=== PATIENT | male | born 1970 | race Hispanic/Latino ===

== ENCOUNTER 2017-04-29 15:49 | Observation (INO) | payer BC ==
[2017-04-29] MEDS ORDERED: Sodium Chloride 0.9% 1,000 ML IV STA (16:42)
[2017-04-29 17:02] LABS: ADD MANUAL DIFF? NO
[2017-04-29 17:12] LABS: BASO # 0.04 K/mm3 (0.0-2.0); BASO % 0.5 % (0.0-3.0); EOS # 0.1 (0.0-0.7); EOS % 0.7 % (1.5-5.0); GRAN # 4.98 (1.4-6.5); GRAN % 66.6 % (50.0-68.0); HEMATOCRIT 42.2 % (42.0-52.0); LYMPH # 1.8 (1.2-3.4); LYMPH % 24.4 % (22.0-35.0); MEAN CELL VOLUME 93.2 fL (80.0-105.0); MEAN CORPUSCULAR HEMOGLOBIN 32.9 pg (25.0-35.0); MEAN CORPUSCULAR HGB CONC 35.3 g/dl (31.0-37.0); MEAN PLATELET VOLUME 9.5 fl (7.0-11.0); MONO # 0.6 (0.1-0.6); MONO % 7.8 % (1.0-6.0); PLATELET COUNT 206 10^3/uL (120.0-450.0); RED CELL DISTRIBUTION WIDTH 12.5 % (11.5-14.5); WHITE BLOOD COUNT 7.5 10^3/ul (4.5-11.0)
[2017-04-29 17:22] LABS: ALB/GLOB RATIO 1.2 (1.1-1.8); ALKALINE PHOSPHATASE 90 U/L (38-133); ALT/SGPT 33 U/L (7-56); AST/SGOT 23 U/L (15-59); BILIRUBIN,TOTAL 1.1 mg/dL (0.2-1.3); BLOOD UREA NITROGEN 14 mg/dL (7-21); CALCIUM 9.6 mg/dL (8.4-10.5); CARBON DIOXIDE 24 mmol/L (21-33); CHLORIDE 107 mmol/L (98-107); GFR AFRICAN-AMERICAN > 60; GLUCOSE,RANDOM 104 mg/dL (70-110); POTASSIUM 3.9 mmol/L (3.6-5.0); SODIUM 140 mmol/L (132-148); TOTAL PROTEIN 7.2 g/dL (5.8-8.3)
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
--- NOTE | 2017-04-29 17:46 | CT ---
PROCEDURE: CT HEAD WITHOUT CONTRAST. HISTORY: fall/headache/ dizziness COMPARISON: None available. TECHNIQUE: Axial computed tomography images were obtained through the head/brain without intravenous contrast. Radiation dose: Total exam DLP = 896.08 mGy-cm. This CT exam was performed using one or more of the following dose reduction techniques: Automated exposure control, adjustment of the mA and/or kV according to patient size, and/or use of iterative reconstruction technique. FINDINGS: HEMORRHAGE: No intracranial hemorrhage. BRAIN: No mass effect or edema. The kenney-white matter differentiation appears intact. Please note that MRI with diffusion imaging is more sensitive in the detection of acute ischemic event. VENTRICLES: No hydrocephalus. CALVARIUM: Unremarkable. PARANASAL SINUSES: Unremarkable as visualized. No significant inflammatory changes. MASTOID AIR CELLS: Unremarkable as visualized. No inflammatory changes. OTHER FINDINGS: Opacification of bilateral external auditory canals, likely cerumen. IMPRESSION: No acute intracranial pathology identified.
--- NOTE | 2017-04-29 18:17 | CT ---
PROCEDURE: CT scan of the cervical spine dated 04/29/2017. HISTORY: Fall. Neck pain. COMPARISON: None available. TECHNIQUE: Axial computed tomography images were obtained of the cervical spine without the use of intravenous contrast. Coronal and sagittal reformatted images were created and reviewed. Radiation dose: Total exam DLP = 598.64 mGy-cm. This CT exam was performed using one or more of the following dose reduction techniques: Automated exposure control, adjustment of the mA and/or kV according to patient size, and/or use of iterative reconstruction technique. FINDINGS: VERTEBRAE: Current study reveals no acute compression fractures no retropulsed fragments. Vertebral bodies exhibit normal stature. There is straightening of the normal cervical lordosis which could be due to patient positioning gantry however underlying element of muscle spasm may contribute. . Facets normally aligned. DISCS/SPINAL CANAL/NEURAL FORAMINA: Mild multilevel degenerative spondylosis. PARASPINAL SOFT TISSUES: At the C5-C6 level, there is mild disc space narrowing with small marginal posterior osteophyte formation contiguous with hypertrophic uncovertebral joints. Facets are slightly overgrown. Mild central canal narrowing with presumed mild flattening of the ventral surface of the spinal cord. Exit foramina are stenotic bilaterally. At the C6-C7 level, minor disc space narrowing. . There may be a very minimal broad-based bulge of the posterior annulus with very minor degenerative squaring of the uncovertebral joints. Central canal appears slightly narrowed. Degenerative squaring of the uncovertebral joints. At the C4-C5 level, disc space height maintained. Small broad-based disc bulge ridge complex slightly larger on the left than the right present and results in some minor flattening of the ventral surface of the thecal sac of. The central canal appears marginal to adequate. The disc appears to reach and minimally flatten the ventral surface of the spinal cord left more so than right. Minimal degenerative squaring of the uncovertebral joints. . . Exit foramina appear adequate on the right and marginal to minimally narrowed on the left. At the C3-C4 level, there is adequate disc height. Minor central bulge of the posterior annulus flattens the ventral surface of the thecal sac without significant cord compression. The exit foramina appear adequate. OTHER FINDINGS: None. IMPRESSION: No acute fractures. Minor multilevel degenerative spondylosis.
[2017-04-29] MEDS ORDERED: Multivitamin (MVI) 10 ML, Thiamine 100 MG, Folic Acid 1 MG in Sodium Chloride 0.9% 1,00... IV ONE ×2 (20:37→22:26)
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
[2017-04-30] MEDS ORDERED: Oxycodone/Acetaminophen 5/325 mg Tab PO STA (05:02)
[2017-04-30 07:50] LABS: MEAN CELL VOLUME 93.2 fL (80.0-105.0); MEAN CORPUSCULAR HEMOGLOBIN 32.5 pg (25.0-35.0); MEAN CORPUSCULAR HGB CONC 34.9 g/dl (31.0-37.0); MEAN PLATELET VOLUME 9.4 fl (7.0-11.0); RED CELL DISTRIBUTION WIDTH 12.3 % (11.5-14.5); WHITE BLOOD COUNT 7.9 10^3/ul (4.5-11.0)
[2017-04-30 07:57] LABS: BLOOD UREA NITROGEN 13 mg/dL (7-21); CARBON DIOXIDE 23 mmol/L (21-33); CHLORIDE 106 mmol/L (98-107); CHOLESTEROL 202 mg/dL (130-200); GFR AFRICAN-AMERICAN > 60; GLUCOSE,RANDOM 141 mg/dL (70-110); POTASSIUM 4.1 mmol/L (3.6-5.0); SODIUM 138 mmol/L (132-148)
--- NOTE | 2017-04-30 09:59 | CARD ---
APPROVED REPORT EKG Measurement Heart [id number] <Conclusion> Normal sinus rhythm Possible Left atrial enlargement Borderline ECG
[2017-04-30 12:43] LABS: FOLATE > 20.0 ng/mL
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
--- NOTE | 2017-05-01 05:47 | CP.PCM.PN ---
Subjective - Date & Time of Evaluation Date of Evaluation: 05/01/17 Time of Evaluation: 00:15 - Subjective Subjective: S:Requested sleeping pill. Patient was seen by bedside. Has no other complaints. Denies chest pain, sob, pain in hands. Medical record was reviewed. O: Last Vital Signs 3 Temp 98.2 F 04/30/17 16:00 Pulse 70 04/30/17 16:00 Resp 20 04/30/17 16:00 BP 130/84 04/30/17 16:00 Pulse Ox 95 04/30/17 16:00 Awake,alert. LUNGS: Normal breathing pattern. NEURO:Speech normal. A:Adjustment anemia. P:Ambien 10 mg PO x 1. Objective - Vital Signs/Intake and Output Vital Signs (last 24 hours): Temp Pulse Resp BP Pulse Ox 98.2 F 70 20 130/84 95 04/30/17 16:00 04/30/17 16:00 04/30/17 16:00 04/30/17 16:00 04/30/17 16:00 Intake and Output: 04/30/17 05/01/17 18:59 06:59 Intake Total 480 Balance 480 - Medications Medications: Current Medications Atorvastatin Calcium (Lipitor) 10 mg PO DAILY [facility] Last Admin: 04/30/17 09:30 Dose: 10 mg Chlordiazepoxide (Librium) 25 mg PO Q8 PRN; Protocol PRN Reason: Anxiety Escitalopram Oxalate (Lexapro) 10 mg PO DAILY [facility] Last Admin: 04/30/17 09:30 Dose: 10 mg Famotidine (Pepcid) 40 mg PO HS [facility] Fenofibrate (Tricor) 145 mg PO DAILY [facility] Gabapentin (Neurontin) 400 mg PO TID [facility] PRN Reason: Protocol Last Admin: 04/30/17 17:36 Dose: 400 mg Prednisone (Prednisone Tab) 25 mg PO DAILY [facility] Stop: 05/02/17 10:01 Prednisone (Prednisone Tab) 20 mg PO DAILY [facility] Stop: 05/03/17 10:00 Prednisone (Prednisone Tab) 15 mg PO DAILY [facility] Stop: 05/04/17 10:00 Prednisone (Prednisone Tab) 10 mg PO DAILY [facility] Stop: 05/05/17 10:00 Prednisone (Prednisone Tab) 5 mg PO DAILY [facility] Stop: 05/06/17 10:00 Thiamine HCl (Vitamin B1 Tab) 100 mg PO DAILY [facility] Tramadol HCl (Ultram) 50 mg PO TID [facility] Last Admin: 04/30/17 17:37 Dose: 50 mg - Labs Labs: 04/30/17 07:00 04/30/17 07:00
[2017-05-01] MEDS ORDERED: Gadodiamide 287 MG/ML VIAL (15ML) IV ONE (10:46)
--- NOTE | 2017-05-01 11:31 | MRI ---
PROCEDURE: MR CERVICAL SPINE WITH AND WITHOUT CONTRAST HISTORY: Numbness in hands COMPARISON: None available. TECHNIQUE: Multiecho multiplanar sequences were performed through the cervical spine with and without the use of intravenous contrast. 15 cc of Omniscan FINDINGS: Normal lordotic curvature. Craniocervical junction unremarkable. Vertebral body heights preserved. No marrow signal abnormality. Normal cervical cord. No paraspinal abnormality. No abnormal enhancement C2-3: No disc herniation, spinal canal stenosis or neural foraminal narrowing. C3-4: No disc herniation, spinal canal stenosis or neural foraminal narrowing. C4-5: No disc herniation, spinal canal stenosis or neural foraminal narrowing. C5-C6: There is a large asymmetric disc bulge right greater than left. This produces bilateral foraminal stenosis and mild central stenosis C6-C7: No disc herniation, spinal canal stenosis or neuroforaminal narrowing. C7-T1: No disc herniation, spinal canal stenosis or neural foraminal narrowing. OTHER FINDINGS: None. IMPRESSION: Large asymmetric disc bulge right greater than left at C5-6 with bilateral foraminal stenosis
[2017-05-01 13:47] LABS: COLLECTION SAMPLE VENOUS
--- NOTE | 2017-05-02 00:45 | CP.PCM.PN ---
Subjective - Date & Time of Evaluation Date of Evaluation: 05/02/17 Time of Evaluation: 00:28 - Subjective Subjective: S:Requested a sleeping pill. Medical record was reviewed. No other complaints. O: Last Vital Signs 3 Temp 97.9 F 05/01/17 16:00 Pulse 88 05/01/17 16:00 Resp 20 05/01/17 16:00 BP 130/90 05/01/17 16:00 Pulse Ox 100 05/01/17 16:00 Stable. A:Adjustment insomnia. P:Ambien 10 mg PO X 1. Objective - Vital Signs/Intake and Output Vital Signs (last 24 hours): Temp Pulse Resp BP Pulse Ox 97.9 F 88 20 130/90 100 05/01/17 16:00 05/01/17 16:00 05/01/17 16:00 05/01/17 16:00 05/01/17 16:00 Intake and Output: 05/01/17 05/02/17 18:59 06:59 Intake Total 780 Balance 780 - Medications Medications: Current Medications Atorvastatin Calcium (Lipitor) 10 mg PO DAILY [facility] Last Admin: 05/01/17 09:58 Dose: 10 mg Chlordiazepoxide (Librium) 25 mg PO Q8 PRN; Protocol PRN Reason: Anxiety Last Admin: 05/01/17 08:21 Dose: 25 mg Escitalopram Oxalate (Lexapro) 10 mg PO DAILY [facility] Last Admin: 05/01/17 09:58 Dose: 10 mg Famotidine (Pepcid) 40 mg PO HS [facility] Last Admin: 05/01/17 21:21 Dose: 40 mg Fenofibrate (Tricor) 145 mg PO DAILY [facility] Last Admin: 05/01/17 10:01 Dose: 145 mg Gabapentin (Neurontin) 400 mg PO TID [facility] PRN Reason: Protocol Last Admin: 05/01/17 17:44 Dose: 400 mg Prednisone (Prednisone Tab) 25 mg PO DAILY [facility] Stop: 05/02/17 10:01 Last Admin: 05/01/17 09:59 Dose: 25 mg Prednisone (Prednisone Tab) 20 mg PO DAILY [facility] Stop: 05/03/17 10:00 Prednisone (Prednisone Tab) 15 mg PO DAILY [facility] Stop: 05/04/17 10:00 Prednisone (Prednisone Tab) 10 mg PO DAILY [facility] Stop: 05/05/17 10:00 Prednisone (Prednisone Tab) 5 mg PO DAILY [facility] Stop: 05/06/17 10:00 Thiamine HCl (Vitamin B1 Tab) 100 mg PO DAILY [facility] Last Admin: 05/01/17 09:59 Dose: 100 mg Tramadol HCl (Ultram) 50 mg PO TID [facility] Last Admin: 05/01/17 17:44 Dose: 50 mg
[2017-05-02 13:47] LABS: COLLECTION SAMPLE (C/V): Venous
[2017-05-02 19:11] VITALS: BP 132/85; PULSE 79; RESP 18; TEMP 98.5; O2SAT 98
--- NOTE | 2017-05-03 23:29 | CP.PCM.PN ---
Subjective - Date & Time of Evaluation Date of Evaluation: 05/01/17 Time of Evaluation: 14:30 - Subjective Subjective: 46 years old male new for me , came with pain and numbness of both hands . h/o drinking . went for cat scane of head and mri of head , reviewed by me Objective - Vital Signs/Intake and Output Vital Signs (last 24 hours): Temp Pulse Resp BP Pulse Ox 97.9 F 88 20 130/90 100 05/01/17 16:00 05/01/17 16:00 05/01/17 16:00 05/01/17 16:00 05/01/17 16:00 Intake and Output: 05/01/17 05/02/17 18:59 06:59 Intake Total 780 Balance 780 - Medications Medications: Current Medications Atorvastatin Calcium (Lipitor) 10 mg PO DAILY [facility] Last Admin: 05/01/17 09:58 Dose: 10 mg Chlordiazepoxide (Librium) 25 mg PO Q8 PRN; Protocol PRN Reason: Anxiety Last Admin: 05/01/17 08:21 Dose: 25 mg Escitalopram Oxalate (Lexapro) 10 mg PO DAILY [facility] Last Admin: 05/01/17 09:58 Dose: 10 mg Famotidine (Pepcid) 40 mg PO HS [facility] Last Admin: 05/01/17 21:21 Dose: 40 mg Fenofibrate (Tricor) 145 mg PO DAILY [facility] Last Admin: 05/01/17 10:01 Dose: 145 mg Gabapentin (Neurontin) 400 mg PO TID [facility] PRN Reason: Protocol Last Admin: 05/01/17 17:44 Dose: 400 mg Prednisone (Prednisone Tab) 25 mg PO DAILY [facility] Stop: 05/02/17 10:01 Last Admin: 05/01/17 09:59 Dose: 25 mg Prednisone (Prednisone Tab) 20 mg PO DAILY [facility] Stop: 05/03/17 10:00 Prednisone (Prednisone Tab) 15 mg PO DAILY [facility] Stop: 05/04/17 10:00 Prednisone (Prednisone Tab) 10 mg PO DAILY [facility] Stop: 05/05/17 10:00 Prednisone (Prednisone Tab) 5 mg PO DAILY [facility] Stop: 05/06/17 10:00 Thiamine HCl (Vitamin B1 Tab) 100 mg PO DAILY [facility] Last Admin: 05/01/17 09:59 Dose: 100 mg Tramadol HCl (Ultram) 50 mg PO TID [facility] Last Admin: 05/01/17 17:44 Dose: 50 mg - Labs Labs: mri of head done reviewed by me - Constitutional Appears: Well - Head Exam Head Exam: NORMAL INSPECTION, NORMOCEPHALIC - Eye Exam Eye Exam: EOMI, Normal appearance, PERRL Pupil Exam: NORMAL ACCOMODATION, PERRL - ENT Exam ENT Exam: Mucous Membranes Moist, Normal Exam - Neck Exam Neck Exam: Full ROM, Normal Inspection. absent: Lymphadenopathy - Respiratory Exam Respiratory Exam: Clear to Ausculation Bilateral, NORMAL BREATHING PATTERN - Cardiovascular Exam Cardiovascular Exam: REGULAR RHYTHM, +S1, +S2. absent: Murmur - GI/Abdominal Exam GI & Abdominal Exam: Soft, Normal Bowel Sounds. absent: Tenderness - Rectal Exam Rectal Exam: Deferred - Extremities Exam Extremities Exam: Full ROM, Normal Capillary Refill, Normal Inspection. absent : Joint Swelling, Pedal Edema - Back Exam Back Exam: NORMAL INSPECTION - Neurological Exam Neurological Exam: Alert, Awake, CN II-XII Intact, Normal Gait, Oriented x3 - Psychiatric Exam Psychiatric exam: Normal Affect, Normal Mood - Skin Skin Exam: Normal Color Assessment and Plan - Assessment and Plan (Free Text) Assessment: 46 years old male with h/o ethnol abuse came with numbness of bothn hands , pain . parasthesia , got cat scane ohead . was negative . now got mri of head , and neck , had herniated disk . h/o back pain , depression. hypercholetrolemia . need pt ,ot , neuro and neuro surgicle consult called . pain management . hand specialist consult called
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
== END 2017-05-02 20:06 | disposition home or self-care (01) ==
LOC: ED 15:49 → ERH 20:22 → 3RSO 21:45 → INTOOBSV 04-30 23:11 → OBSVTOIN 04-30 23:11
PROVIDERS: ADMIT Internal Medicine; ATTEND Internal Medicine
DX: M50.222 Other cervical disc displacement at C5-C6 level (principal); R20.2 Paresthesia of skin; F32.9 Major depressive disorder, single episode, unspecified; E78.5 Hyperlipidemia, unspecified; F51.02 Adjustment insomnia; E78.00 Pure hypercholesterolemia, unspecified
CPT/HCPCS: 36415; 70450; 72125; 72156; 80048; 80053; 80061; 82175; 82607; 82746; 83018; 83036; 83540; 83655; 83825; 84443; 84630; 85025; 85027; 93005; 96365; 96375; 96376; 97161; 97530; 99285; A9579; G0378; G0480; G8978; G8980; J1100; J3411; J7040

== ENCOUNTER 2018-10-17 18:15 | Emergency (ER) | payer BC ==
[2018-10-17 18:30] VITALS: RESP 18
[2018-10-17 18:51] VITALS: TEMP 98.3
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
[2018-10-17 19:42] LABS: BLOOD UREA NITROGEN 27 mg/dL (7-21); CALCIUM 9.3 mg/dL (8.4-10.5); GFR NON-AFRICAN AMERICAN > 60
[2018-10-17 19:43] LABS: ALB/GLOB RATIO 1.3 (1.1-1.8); ALBUMIN 4.4 g/dL (3.0-4.8); ALT/SGPT 27 U/L (7-56); AST/SGOT 35 U/L (17-59)
[2018-10-17 19:44] LABS: BASO # 0.04 K/mm3 (0.0-2.0); BASO % 0.4 % (0.0-3.0); EOS # 0.1 (0.0-0.7); EOS % 1.2 % (1.5-5.0); GRAN # 5.69 (1.4-6.5); GRAN % 62.6 % (50.0-68.0); HEMOGLOBIN 14.2 g/dL (14.0-18.0); LYMPH # 2.6 (1.2-3.4); MEAN CELL VOLUME 93.7 fl (80.0-105.0); MEAN CORPUSCULAR HEMOGLOBIN 32.1 pg (25.0-35.0); MEAN CORPUSCULAR HGB CONC 34.3 g/dl (31.0-37.0); MEAN PLATELET VOLUME 9.4 fl (7.0-11.0); MONO # 0.6 (0.1-0.6); MONO % 6.8 % (1.0-6.0); RBC 4.42 10^6/uL (3.5-6.1); RED CELL DISTRIBUTION WIDTH 12.4 % (11.5-14.5); WHITE BLOOD COUNT 9.1 10^3/uL (4.5-11.0)
[2018-10-17 19:53] LABS: TROPONIN I < 0.01 ng/mL
[2018-10-17 20:49] VITALS: BP 132/74; PULSE 82; O2SAT 100
--- NOTE | 2018-10-18 08:49 | RAD ---
HISTORY: L shoulder pain COMPARISON: None available. TECHNIQUE: Chest PA and lateral FINDINGS: Examination limited by habitus and hypoinflation. LUNGS: No focal consolidation. Please note that chest x-ray has limited sensitivity for the detection of pulmonary masses. PLEURA: No significant pleural effusion identified. No definite pneumothorax . CARDIOVASCULAR: Heart size appears within normal limits. No atherosclerotic calcification present. OSSEOUS STRUCTURES: Degenerative changes. VISUALIZED UPPER ABDOMEN: Unremarkable. OTHER FINDINGS: None. IMPRESSION: Hypoinflation. No focal consolidation.
--- NOTE | 2018-10-18 14:48 | CARD ---
APPROVED REPORT Date of service: 10/17/2018 EKG Measurement Heart [id number] HI [id number] <Conclusion> Normal sinus rhythm Normal ECG
== END 2018-10-17 20:40 | disposition home or self-care (01) ==
LOC: ED 18:15
DX: M79.10 Myalgia, unspecified site (principal)
CPT/HCPCS: 71046; 80053; 84484; 85025; 93005; 96372; 99283; J1885